=== PATIENT | female | born 1975 | race Hispanic/Latino ===

== ENCOUNTER 2020-07-24 05:05 | Emergency (ER) | payer SELFPAY ==
--- NOTE | 2020-07-24 05:33 | Event Note ---
ED Screening Note ED Screening Note: I briefly spoke with patient and obtain history from EMS. Patient took too many anxiety pills and other type of medication. She told charge nurse that she "I overdosed. I am dying." When I asked if she attempted to harm herself, she stated that "I do not want to go back to [place]. I already went through that." I was concerned that patient did indeed attempt to take her life with intentional overdose. In addition she was evasive and not forthright regarding the preceding events prior to her arrival via EMS. Consequently involuntary hold indicated using 1013 protocol. This initial assessment/diagnostic orders/clinical plan/treatment(s) is/are subject to change based on patients health status, clinical progression and re- assessment by fellow clinical providers in the ED. Further treatment and workup at subsequent clinical providers discretion. Patient/guardian urged not to elope from the ED as their condition may be serious if not clinically assessed and managed. Initial orders include: 1013 form completed, labs, mental health consult order
[2020-07-24] MEDS ORDERED: SODIUM CHLORIDE 0.9% 1000 ML 1,000 ML ONE (06:18)
[2020-07-24 06:20] LABS: Hematocrit 32.9 % (30.3-42.9); Hemoglobin 10.8 gm/dl (10.1-14.3); Mean Corpuscular HGB Conc 33 % (30-34); Mean Corpuscular Volume 76 fl (79-97); Platelet Count 266 K/mm3 (140-440); Red Blood Count 4.35 M/mm3 (3.65-5.03)
[2020-07-24] MEDS ORDERED: SODIUM CHLORIDE 0.9% 1000 ML 1,000 ML IV ONE (06:20)
[2020-07-24] MEDS ORDERED: NALOXONE 2 MG/2 ML INJ IV ONE (06:28)
[2020-07-24] MEDS ORDERED: NALOXONE 2 MG/2 ML INJ ONE (06:29)
[2020-07-24 06:44] LABS: Alanine Aminotransferase 19 units/L (7-56); Albumin 3.8 g/dL (3.9-5); BUN/Creatinine Ratio 11; Blood Urea Nitrogen 11 mg/dL (7-17); Calcium 8.7 mg/dL (8.4-10.2); Hemolysis Index 8
--- NOTE | 2020-07-24 07:01 | Emergency Department Report ---
History of Present Illness - General Chief Complaint: Overdose Stated Complaint: SI ATTEMPT Time Seen by Provider: 07/24/20 06:08 Source: patient, EMS Mode of arrival: Wheelchair Limitations: No Limitations - History of Present Illness Initial Comments: Patient is 44-year-old female with history of schizophrenia and obstructive sleep apnea. Patient brought to the emergency room via EMS from home for evaluation of possible intentional drug overdose. Patient stated that she took too many trazodone and Zofran. Patient informed me that she is hearing voices and they asked her to kill herself. Patient denied any homicidal ideation. No visual hallucination. Upon arrival to the ER patient is obtunded but answering questions. Vital signs stable except for slightly low blood pressure. Patient started on normal saline. Poison control contacted and advised to do EKG and supportive treatment. MD Complaint: intentional overdose -: Sudden, This morning Intent: suicide attempt Context: Intentional Overdose: hearing voices - Related Data Allergies Allergy/AdvReac Type Severity Reaction Status Date / Time No Known Allergies Allergy Verified 07/24/20 05:34 ED Review of Systems ROS: Stated complaint: SI ATTEMPT Other details as noted in HPI Comment: All other systems reviewed and negative Constitutional: denies: chills, fever Respiratory: denies: cough, shortness of breath, SOB with exertion Cardiovascular: denies: chest pain, palpitations Gastrointestinal: denies: abdominal pain, nausea, vomiting Musculoskeletal: denies: back pain Neurological: denies: headache, weakness, numbness, paresthesias, confusion ED Past Medical Hx - Past Medical History Previous Medical History?: Yes Hx Psychiatric Treatment: Yes (anxiety) - Surgical History Past Surgical History?: No - Social History Smoking Status: Never Smoker Substance Use Type: Alcohol ED Physical Exam - General Limitations: No Limitations General appearance: alert, in no apparent distress - Head Head exam: Present: atraumatic, normocephalic, normal inspection - Eye Eye exam: Present: normal appearance - ENT ENT exam: Present: normal exam, normal orophraynx, mucous membranes moist - Neck Neck exam: Present: normal inspection, full ROM. Absent: tenderness, meningismus - Respiratory Respiratory exam: Present: normal lung sounds bilaterally - Cardiovascular Cardiovascular Exam: Present: regular rate, normal rhythm, normal heart sounds - GI/Abdominal GI/Abdominal exam: Present: soft, normal bowel sounds. Absent: distended, tenderness, guarding, rebound, rigid, organomegaly, mass, bruit, pulsatile mass, hernia - Extremities Exam Extremities exam: Present: normal inspection, full ROM, normal capillary refill. Absent: pedal edema, calf tenderness - Back Exam Back exam: Present: normal inspection, full ROM. Absent: CVA tenderness (R), CVA tenderness (L) - Neurological Exam Neurological exam: Present: alert, oriented X3 - Psychiatric Psychiatric exam: Present: depressed - Skin Skin exam: Present: warm, dry, intact, normal color ED Course Vital Signs 07/24/20 07/24/20 07/24/20 05:34 06:05 06:30 Temperature 98.6 F Pulse Rate 106 H 80 78 Respiratory 15 20 18 Rate Blood Pressure 125/78 91/48 90/44 O2 Sat by Pulse 95 90 98 Oximetry 07/24/20 07/24/20 07/24/20 06:45 07:00 08:00 Temperature Pulse Rate 81 82 86 Respiratory 17 17 16 Rate Blood Pressure 100/50 111/59 92/71 O2 Sat by Pulse 98 100 100 Oximetry 07/24/20 07/24/20 07/24/20 09:01 10:00 11:00 Temperature Pulse Rate 87 72 77 Respiratory 17 16 17 Rate Blood Pressure 121/65 114/59 117/70 O2 Sat by Pulse 100 100 100 Oximetry 07/24/20 12:01 Temperature Pulse Rate 84 Respiratory 22 Rate Blood Pressure 114/87 O2 Sat by Pulse 98 Oximetry - Reevaluation(s) Reevaluation #1: 07/24/20 13:14 Patient evaluated by me multiple times. Patient is alert, oriented x3 in no acute distress. Vital signs stable with oxygen saturation of 100% on room air. ED Medical Decision Making - Lab Data Result diagrams: 07/24/20 06:07 07/24/20 06:07 - EKG Data -: EKG Interpreted by Me EKG shows normal: sinus rhythm Rate: normal - EKG Data Interpretation: no acute changes - Medical Decision Making Patient is 44-year-old female with history of schizophrenia and obstructive sleep apnea. Patient brought to the emergency room via EMS from home for evaluation of possible intentional drug overdose. Patient stated that she took too many trazodone and Zofran. Patient informed me that she is hearing voices and they asked her to kill herself. Patient denied any homicidal ideation. No visual hallucination. Upon arrival to the ER patient is obtunded but answering questions. Vital signs stable except for slightly low blood pressure. Patient started on normal saline. Poison control contacted and advised to do EKG and supportive treatment. Labs reviewed and is unremarkable. Poison control contacted and advised to monitor patient to in 6 to 8 hours. Patient is alert, oriented x3 in no acute distress. Family indicated that patient had history of suicidal attempt before. Patient is medically clear to be evaluated by psychiatric team for possible inpatient psychiatric admission. Critical Care Time: Yes Critical care time in (mins) excluding proc time.: 30 Critical care attestation.: If time is entered above; I have spent that time in minutes in the direct care of this critically ill patient, excluding procedure time. ED Disposition Clinical Impression: Intentional overdose of drug in tablet form, Suicide attempt, Cocaine abuse Disposition: DC/TX-65 PSY HOSP/PSY UNIT Is pt being admited?: No Condition: Stable Referrals: FRANSICO SHEARER MD [Primary Care Provider] - 3-5 Days
[2020-07-24 08:11] LABS: Basophils % (Manual) 0 % (0.0-1.8); Total Cells Counted 100
[2020-07-24 08:12] LABS: Anisocytosis 1+; Hypochromasia 2+; Platelet Estimate Consistent w Auto
[2020-07-24 12:01] LABS: Amphetamine Screen,Urine Negative; Benzodiazepines Screen,Urine Negative; Cannabinoid Screen,Urine Negative; Methadone Screen,Urine Negative; Opiate Screen,Urine Negative
[2020-07-24 12:04] LABS: Bacteria,Urine 1+ /HPF (Negative); Bilirubin,Urine NEG (Negative); Blood,Urine SM (Negative); Color,Urine Yellow (Yellow); Mucus,Urine FEW /HPF; Protein,Urine <15 mg/dL mg/dL (Negative); Urobilinogen,Urine < 2.0 mg/dL (<2.0)
[2020-07-24 12:31] LABS: Cocaine Screen,Urine Positive
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
[2020-07-25] MEDS: buPROPion 100 MG TAB PO SCH ×2 (15:00→22:22)
[2020-07-25] MEDS ORDERED: traZODone 50 MG TAB PO SCH (22:00)
[2020-07-25] MEDS: risperiDONE 0.25 MG TAB PO SCH (22:22)
[2020-07-26] MEDS: risperiDONE 0.25 MG TAB PO SCH (11:09)
[2020-07-26] MEDS: buPROPion 100 MG TAB PO SCH (11:09)
[2020-07-26 11:21] VITALS: BP 120/75
== END 2020-07-26 12:51 ==
LOC: ED 05:05 → EEVIPCON 05:05 → ED 07-26 12:51
DX: F20.9 Schizophrenia, unspecified (principal); T43.212A Poisoning by selective serotonin and norepinephrine reuptake inhibitors, intentional self-harm, initial encounter; T45.0X2A Poisoning by antiallergic and antiemetic drugs, intentional self-harm, initial encounter; F43.10 Post-traumatic stress disorder, unspecified; F14.10 Cocaine abuse, uncomplicated; F41.9 Anxiety disorder, unspecified; X58.XXXA Exposure to other specified factors, initial encounter; Y93.89 Activity, other specified; Y92.89 Other specified places as the place of occurrence of the external cause; Y99.8 Other external cause status
CPT/HCPCS: 36415; 80053; 80307; 81001; 83735; 84703; 85007; 85025; 93005; 96361; 96374; 99291; J2310; J7030; 80320; G0480

== ENCOUNTER 2020-08-04 10:54 | Emergency (ER) | payer SELFPAY ==
[2020-08-04 11:37] VITALS: BP 131/82
--- NOTE | 2020-08-04 12:41 | Emergency Department Report ---
Abscess Boil HPI - HPI Chief Complaint: Pain General Stated Complaint: BREAST PAIN Time Seen by Provider: 08/04/20 11:58 Duration: >1 Week Location: Chest (bilateral breast) History: Yes Fever, Yes Pain, No Purulent Drainage, No Numbness, No Foreign Body, No Previous History, No Insect Bite HPI: Chief complaint: Breast pain. HPI: This is a 43-year-old female with obst ructive sleep apnea, schizophrenia and polysubstance abuse who presents with bilateral breast tenderness. Patient has had multiple breast surgeries for previous infections. She feels "fever" in her breasts. Soreness has been present for at least 1 week. Mild pain involving both breasts around the nipple region. Home Medications: Previous Rx's Medication Instructions Recorded Last Taken Type cephALEXin [Keflex] 250 mg PO TID 5 Days #15 capsule 08/04/20 Unknown Rx Allergies/Adverse Reactions: Allergies Allergy/AdvReac Type Severity Reaction Status Date / Time No Known Allergies Allergy Verified 07/24/20 05:34 ED Review of Systems ROS: Stated complaint: BREAST PAIN Other details as noted in HPI Constitutional: fever. denies: chills, malaise Respiratory: denies: cough, shortness of breath Gastrointestinal: denies: abdominal pain, nausea, vomiting Skin: denies: rash, lesions, change in color ED Past Medical Hx - Past Medical History Previous Medical History?: Yes Hx Psychiatric Treatment: Yes (anxiety, SI 07/2020) - Surgical History Additional Surgical History: breast surgery in 2019 - Social History Smoking Status: Current Every Day Smoker Substance Use Type: None - Medications Home Medications: Home Medications Medication Instructions Recorded Confirmed Last Taken Type cephALEXin [Keflex] 250 mg PO TID 5 Days #15 capsule 08/04/20 Unknown Rx ED Abscess Boil Physical Exam - Exam General: Vital signs noted. No distress. Alert and acting appropriately. Exam: Yes Tenderness, Yes Normal Circulation, No Fluctuance, No Surrounding Cellulites/Erythema, No Lymphangitis Exam: Bilateral breast: No erythema no fluctuance, positive tenderness around the area Arabella ED Course Vital Signs 08/04/20 08/04/20 11:19 12:19 Temperature 98.5 F 99 F Pulse Rate 81 76 Respiratory 18 16 Rate Blood Pressure 131/82 Blood Pressure 131/82 [Left] O2 Sat by Pulse 99 100 Oximetry Critical care attestation.: If time is entered above; I have spent that time in minutes in the direct care of this critically ill patient, excluding procedure time. 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 She does have surgical scars on both breasts. At this moment there is no evidence of mastitis or breast abscess, however, I have elected to prescribe prophylactic antibiotic cephalexin considering extensive previous history. I also strongly recommended mammogram. Her last mammogram was over 4 years ago. I have referred her to an outpatient medicine physician. ED Disposition Clinical Impression: Pain of both breasts, History of breast abscess Disposition: TO HOME OR SELFCARE Is pt being admited?: No Does the pt Need Aspirin: No Condition: Stable Additional Instructions: Please see our primary care physician. Please have our primary care physician refer you for a mammogram. Prescriptions: cephALEXin [Keflex] 250 mg PO TID 5 Days #15 capsule Referrals: JAYLEN LAYNE MD [Staff Physician] - 3-5 Days
== END 2020-08-04 12:45 | disposition home or self-care (01) ==
LOC: ED 10:54
DX: N64.4 Mastodynia (principal); F17.200 Nicotine dependence, unspecified, uncomplicated; F41.9 Anxiety disorder, unspecified
CPT/HCPCS: 99282

== ENCOUNTER 2020-08-14 10:07 | Emergency (ER) | payer MEDICAID ==
[2020-08-14 10:35] VITALS: BP 153/79
--- NOTE | 2020-08-14 12:02 | XRay Report ---
LEFT ELBOW 4 VIEW(S) INDICATION / CLINICAL INFORMATION: pain, no injury COMPARISON: None available. FINDINGS: BONES / JOINT(S): No acute fracture or subluxation. Mild degenerative change. SOFT TISSUES: No significant abnormality. ADDITIONAL FINDINGS: None. Signer Name: Barnye Reed MD Signed: 08/14/2020 11:58 AM Workstation Name: [id number]
--- NOTE | 2020-08-14 12:21 | Emergency Department Report ---
ED General Adult HPI - General Chief complaint: Extremity Injury, Upper Stated complaint: ARM PAIN Time Seen by Provider: 08/14/20 11:01 Source: patient Mode of arrival: Ambulatory Limitations: No Limitations - History of Present Illness Initial comments: 43-year-old -[place] female patient presents with complaints of left elbow pain x2 days. She denies any injury or repetitive motions of the left elbow. She rates her current pain as a 8/10 in severity and denies trying any OTC medications. She also denies any history of cancer, numbness/ tingling/weakness in her left arm or hand, or recent heavy lifting. -: Sudden - Related Data Previous Rx's Medication Instructions Recorded Last Taken Type cephALEXin [Keflex] 250 mg PO TID 5 Days #15 capsule 08/04/20 Unknown Rx Ibuprofen [Motrin 800 MG tab] 800 mg PO Q8HR PRN #21 tablet 08/14/20 Unknown Rx Allergies Allergy/AdvReac Type Severity Reaction Status Date / Time No Known Allergies Allergy Verified 07/24/20 05:34 ED Review of Systems ROS: Stated complaint: ARM PAIN Other details as noted in HPI Constitutional: denies: chills, fever, malaise Musculoskeletal: arthralgia. denies: joint swelling Neurological: denies: numbness, paresthesias ED Past Medical Hx - Past Medical History Previous Medical History?: Yes Hx Psychiatric Treatment: Yes (anxiety, SI 07/2020) - Surgical History Past Surgical History?: Yes Additional Surgical History: breast surgery in 2019 - Social History Smoking Status: Current Every Day Smoker Substance Use Type: Prescribed - Medications Home Medications: Home Medications Medication Instructions Recorded Confirmed Last Taken Type cephALEXin [Keflex] 250 mg PO TID 5 Days #15 capsule 08/04/20 Unknown Rx Ibuprofen [Motrin 800 MG tab] 800 mg PO Q8HR PRN #21 tablet 08/14/20 Unknown Rx ED Physical Exam - General Limitations: No Limitations General appearance: alert, in no apparent distress, obese - Head Head exam: Present: atraumatic, normocephalic - Eye Eye exam: Absent: scleral icterus - Respiratory Respiratory exam: Absent: respiratory distress - Cardiovascular Cardiovascular Exam: Present: regular rate - Extremities Exam Extremities exam: Present: full ROM, other (Tenderness to palpation noted at the left medial and lateral portion of the elbow without erythema, deformity, ecchymosis, or warmth or swelling noted. Patient has full range of motion and sensation of the left elbow and hand and fingers. Normal pulses are noted). Absent: joint swelling - Back Exam Back exam: Present: normal inspection - Neurological Exam Neurological exam: Present: alert, oriented X3, normal gait - Psychiatric Psychiatric exam: Present: normal affect, normal mood - Skin Skin exam: Present: warm, dry, intact, normal color. Absent: rash ED Course Vital Signs 08/14/20 10:15 Temperature 98.2 F Pulse Rate 63 Respiratory 18 Rate Blood Pressure 153/79 O2 Sat by Pulse 99 Oximetry ED Medical Decision Making - Radiology Data Radiology results: report reviewed LEFT ELBOW 4 VIEW(S) INDICATION / CLINICAL INFORMATION: pain, no injury COMPARISON: None available. FINDINGS: BONES / JOINT(S): No acute fracture or subluxation. Mild degenerative change. SOFT TISSUES: No significant abnormality. ADDITIONAL FINDINGS: None. - Medical Decision Making Patient here with complaints of left elbow pain without injury for the past 2 days. She denies any red flag symptoms. X-ray is negative for any acute abnormalities. Patient placed in Bill wrap and recommended to use Rice method with NSAIDs. Patient to follow-up with PCP. Strict return precautions were discussed in detail with patient who verbalized understanding. Critical care attestation.: If time is entered above; I have spent that time in minutes in the direct care of this critically ill patient, excluding procedure time. ED Disposition Clinical Impression: Left elbow pain Disposition: DC-01 TO HOME OR SELFCARE Is pt being admited?: No Condition: Stable Instructions: Tennis Elbow (ED) Prescriptions: Ibuprofen [Motrin 800 MG tab] 800 mg PO Q8HR PRN #21 tablet PRN Reason: pain Referrals: PRIMARY CARE,MD [Primary Care Provider] - 3-5 Days
== END 2020-08-14 12:48 | disposition home or self-care (01) ==
LOC: ED 10:07
DX: M25.522 Pain in left elbow (principal); F41.9 Anxiety disorder, unspecified; F17.200 Nicotine dependence, unspecified, uncomplicated; Z98.890 Other specified postprocedural states; Z79.899 Other long term (current) drug therapy

== ENCOUNTER 2020-09-23 13:10 | Emergency (ER) | payer MEDICAID ==
[2020-09-24] MEDS ORDERED: dexAMETHasone 20 MG/5 ML VIAL IM ONE (00:16)
[2020-09-24] MEDS ORDERED: KETOROLAC 30 MG/1 ML INJ IM ONE (00:16)
--- NOTE | 2020-09-24 00:39 | Emergency Department Report ---
Upper Extremity - HPI Chief Complaint: Shoulder Injury Stated Complaint: LEFT SHOULD/ARM PAIN Time Seen by Provider: 09/24/20 00:14 Upper Extremity: Left Shoulder Occurred When: >5 Days Mechanism: Other (Slept left on Shoulder 1 week ago woke up with pain neck and shoulder , 4/10 aching , exacerbated by movement, relieved by nothing, rom intact , no numbness, no deformity. ) Severity: moderate Symptoms: Yes Pain with Movement, Yes Limited Range of Movement, No Deformity, No Numbness, No Weakness, No Swelling, No Bruising/Ecchymosis, No Laceration or Abrasion ED Review of Systems ROS: Stated complaint: LEFT SHOULD/ARM PAIN Other details as noted in HPI Constitutional: no symptoms reported Eyes: denies: eye pain, eye discharge, vision change ENT: denies: ear pain, throat pain Respiratory: denies: cough, shortness of breath, wheezing Cardiovascular: denies: chest pain, palpitations Endocrine: no symptoms reported Gastrointestinal: denies: abdominal pain, nausea, diarrhea Genitourinary: denies: urgency, dysuria, discharge Musculoskeletal: arthralgia, myalgia. denies: back pain, joint swelling Skin: denies: rash, lesions Neurological: denies: headache, weakness, paresthesias Psychiatric: denies: anxiety, depression Hematological/Lymphatic: denies: easy bleeding, easy bruising ED Past Medical Hx - Past Medical History Previous Medical History?: Yes Hx Psychiatric Treatment: Yes (anxiety, SI 07/2020, PTSD,ATTEMPTED SUICIDE) - Surgical History Past Surgical History?: Yes Additional Surgical History: breast surgery in 2019 - Social History Smoking Status: Current Every Day Smoker - Medications Home Medications: Home Medications Medication Instructions Recorded Confirmed Last Taken Type cephALEXin [Keflex] 250 mg PO TID 5 Days #15 capsule 08/04/20 Unknown Rx Ibuprofen [Motrin 800 MG tab] 800 mg PO Q8HR PRN #21 tablet 08/14/20 Unknown Rx Menthol/Camphor [[place] 1 applicatio TP DAILY #1 tube 09/24/20 Unknown Rx Ointment] Naproxen 500 mg PO BID PRN #30 tablet 09/24/20 Unknown Rx Upper Extremity Exam - Exam General: Vital signs noted. No distress. Alert and acting appropriately. Head and Torso: Yes Neck Tenderness (left lateral neck muscle tenderness to deep palpation), No HEENT Abnormality, No Chest/Lungs Abnormality, No Abdominal Tenderness, No Back Tenderness Shoulder Exam: Yes Shoulder Tenderness (left poseriro v), No Clavicle Tenderness, No Normal Range of Motion in Shoulder, No Shoulder Deformity, No AC Joint Tenderness Arm Exam: No Arm/Humerus Tenderness, No Arm Deformity Elbow: Yes Normal Range of Motion in Elbow, No Elbow Tenderness, No Elbow Deformity Forearm: Yes Pain with Pronation, Yes Pain with Supination, No Forearm Tenderness, No Forearm Deformity Wrist: Yes Normal ROM in Wrist, No Wrist Tenderness, No Wrist Deformity, No Snuffbox Tenderness, No Pain with Axial Thumb Compression Hand: No Hand Tenderness, No Hand Deformity, No Digit Tenderness, No Normal ROM in Digit(s), No Digit(s) Deformity, No Tendon Dysfunction CMS Exam: Yes Normal Distal Pulses, Yes Normal Capillary Refill, Yes Normal Distal Sensation, No Broken Skin ED Course Vital Signs 09/23/20 14:59 Temperature 98.5 F Pulse Rate 88 Respiratory 18 Rate Blood Pressure 138/107 O2 Sat by Pulse 100 Oximetry ED Medical Decision Making - Medical Decision Making this is a neck and Shoulder strain, three is no posterior vertebral point tenderness. ROM is restricted by pain, accounting manager controller are equal, distal pulses +2, there is no weakness no numbness no tingling. plan dc to home with RX, moist heat therapy, ROM exercises. pt dc'd to home in stable condition . Critical care attestation.: If time is entered above; I have spent that time in minutes in the direct care of this critically ill patient, excluding procedure time. ED Disposition Clinical Impression: Left shoulder strain Qualifiers: Encounter type: initial encounter Qualified Code(s): S46.912A - Strain of unspecified muscle, fascia and tendon at shoulder and upper arm level, left arm, initial encounter Neck muscle strain Qualifiers: Encounter type: initial encounter Qualified Code(s): S16.1XXA - Strain of muscle, fascia and tendon at neck level, initial encounter Disposition: DC-01 TO HOME OR SELFCARE Is pt being admited?: No Does the pt Need Aspirin: No Condition: Stable Instructions: Naproxen (By mouth), Muscle Strain (ED), Neck Exercises (GEN), Muscle Strain, [id number], Cervical Strain and Sprain Rehab-SportsMed Prescriptions: Naproxen 500 mg PO BID PRN #30 tablet PRN Reason: pain Menthol/Camphor [[place] Ointment] 1 applicatio TP DAILY #1 tube Referrals: PRIMARY CARE, [Primary Care Provider] - 3-5 Days [facility] [Provider Group] - 3-5 Days Forms: Work/School Release Form(ED) Time of Disposition: 00:58
[2020-09-24 01:30] VITALS: BP 130/95
== END 2020-09-24 01:30 | disposition home or self-care (01) ==
LOC: ED 13:10
DX: S46.912A Strain of unspecified muscle, fascia and tendon at shoulder and upper arm level, left arm, initial encounter (principal); S16.1XXA Strain of muscle, fascia and tendon at neck level, initial encounter; F41.9 Anxiety disorder, unspecified; F17.200 Nicotine dependence, unspecified, uncomplicated; Z98.890 Other specified postprocedural states; Z79.1 Long term (current) use of non-steroidal anti-inflammatories (NSAID); Z79.899 Other long term (current) drug therapy; X58.XXXA Exposure to other specified factors, initial encounter; Y93.89 Activity, other specified; Y92.89 Other specified places as the place of occurrence of the external cause; Y99.8 Other external cause status
CPT/HCPCS: 96372; 99282; J1100; J1885

== ENCOUNTER 2020-10-24 10:02 | Emergency (ER) | payer MEDICAID ==
[2020-10-24 10:08] VITALS: BP 161/87
--- NOTE | 2020-10-24 11:20 | Emergency Department Report ---
ED Upper Extremity Inj HPI - General Chief Complaint: Shoulder Injury Stated Complaint: BACK SHOULDER DISCOMFORT Time Seen by Provider: 10/24/20 10:59 Source: patient Mode of arrival: Ambulatory Limitations: No Limitations - History of Present Illness Initial Comments: This is a 44-year-old female presents the emergency department who presents the emergency department chief complaint of left shoulder pain and right breast pain over the past many months. She reports she was seen for her left shoulder pain in the past and given naproxen which is helped. She has never followed up with orthopedics. She denies any injuries. She also reports that she is having pain to the left breast where she feels a painful bump. She has had multiple abscesses in the past and wanted to come here prior to becoming an abscess so she get antibiotics which have helped in the past. She denies any associated fever, chills or night sweats, headache, dizziness, blurry vision, nausea,, diarrhea, chest pain, shortness of breath or any other associated symptoms. - Related Data Previous Rx's Medication Instructions Recorded Last Taken Type cephALEXin [Keflex] 250 mg PO TID 5 Days #15 capsule 08/04/20 Unknown Rx Ibuprofen [Motrin 800 MG tab] 800 mg PO Q8HR PRN #21 tablet 08/14/20 Unknown Rx Menthol/Camphor [[place] 1 applicatio TP DAILY #1 tube 09/24/20 Unknown Rx Ointment] Naproxen 500 mg PO BID PRN #30 tablet 09/24/20 Unknown Rx Clindamycin [Clindamycin CAP] 300 mg PO Q8H #30 cap 10/24/20 Unknown Rx Naproxen [EC-Naprosyn] 500 mg PO BID #20 tablet. 10/24/20 Unknown Rx Allergies Allergy/AdvReac Type Severity Reaction Status Date / Time No Known Allergies Allergy Verified 07/24/20 05:34 ED Review of Systems ROS: Stated complaint: BACK SHOULDER DISCOMFORT Other details as noted in HPI Comment: All other systems reviewed and negative Constitutional: denies: chills, fever Eyes: denies: eye pain, eye discharge, vision change ENT: denies: ear pain, throat pain Respiratory: denies: cough, shortness of breath, wheezing Cardiovascular: denies: chest pain, palpitations Endocrine: no symptoms reported Gastrointestinal: denies: abdominal pain, nausea, diarrhea Genitourinary: denies: urgency, dysuria, discharge Musculoskeletal: as per HPI, arthralgia. denies: back pain, joint swelling Skin: denies: rash, lesions Neurological: denies: headache, weakness, paresthesias Psychiatric: denies: anxiety, depression Hematological/Lymphatic: denies: easy bleeding, easy bruising ED Past Medical Hx - Past Medical History Previous Medical History?: Yes Hx Psychiatric Treatment: Yes (anxiety, SI 07/2020, PTSD,ATTEMPTED SUICIDE) - Surgical History Past Surgical History?: Yes Additional Surgical History: breast surgery in 2019 - Social History Smoking Status: Current Every Day Smoker - Medications Home Medications: Home Medications Medication Instructions Recorded Confirmed Last Taken Type cephALEXin [Keflex] 250 mg PO TID 5 Days #15 capsule 08/04/20 Unknown Rx Ibuprofen [Motrin 800 MG tab] 800 mg PO Q8HR PRN #21 tablet 08/14/20 Unknown Rx Menthol/Camphor [[place] 1 applicatio TP DAILY #1 tube 09/24/20 Unknown Rx Ointment] Naproxen 500 mg PO BID PRN #30 tablet 09/24/20 Unknown Rx Clindamycin [Clindamycin CAP] 300 mg PO Q8H #30 cap 10/24/20 Unknown Rx Naproxen [EC-Naprosyn] 500 mg PO BID #20 tablet. 10/24/20 Unknown Rx ED Physical Exam - General Limitations: No Limitations General appearance: alert, in no apparent distress - Head Head exam: Present: atraumatic, normocephalic - Eye Eye exam: Present: normal appearance, PERRL, EOMI Pupils: Present: normal accommodation - ENT ENT exam: Present: normal exam, normal orophraynx, mucous membranes moist - Neck Neck exam: Present: normal inspection, full ROM. Absent: tenderness, meningismus - Respiratory Respiratory exam: Present: normal lung sounds bilaterally, other (Breast exam chaperoned by MELANIE Huber showing a 1 cm firm area at the 6 o'clock position below the alveolar complex. No fluctuance, erythema or induration. No dimpling. No additional masses.). Absent: respiratory distress, wheezes, rales, rhonchi, stridor - Cardiovascular Cardiovascular Exam: Present: regular rate, normal rhythm, normal heart sounds. Absent: systolic murmur, diastolic murmur, rubs, gallop - GI/Abdominal GI/Abdominal exam: Present: soft, normal bowel sounds - Extremities Exam Extremities exam: Present: normal inspection, full ROM, tenderness (Mild tenderness to the superior and posterior shoulder. Normal passive range of motion without pain. Pain with Liriano sign. Negative drop arm test, negative empty can test. Normal radial pulses that are equal bilaterally), normal capillary refill - Back Exam Back exam: Present: normal inspection, full ROM. Absent: tenderness, CVA tenderness (R), CVA tenderness (L) - Neurological Exam Neurological exam: Present: alert, oriented X3, normal gait. Absent: motor sensory deficit - Psychiatric Psychiatric exam: Present: normal affect, normal mood - Skin Skin exam: Present: warm, dry, intact, normal color. Absent: rash ED Course Vital Signs 10/24/20 10/24/20 10:05 10:07 Temperature 98.1 F Pulse Rate 84 Respiratory 18 Rate Blood Pressure 161/87 [Right] O2 Sat by Pulse 99 Oximetry ED Medical Decision Making - Medical Decision Making Patient's exam is consistent with a early breast abscess. Patient declined I&D and preferred antibiotics. I will also refill the patient's naproxen and recommended orthopedic follow-up. I also recommend the patient follow-up with her primary care doctor for breast imaging as needed such as mammogram to rule out malignancy.. Patient instructed to return the emerge department if develops any change or worsening symptoms patient verbalized understand the diagnosis, treatment and follow-up instructions all of her questions were answered. - Differential Diagnosis Abscess, malignancy, cyst, strain Critical care attestation.: If time is entered above; I have spent that time in minutes in the direct care of this critically ill patient, excluding procedure time. ED Disposition Clinical Impression: Breast abscess Sprain of left shoulder Qualifiers: Encounter type: initial encounter Shoulder sprain type: unspecified sprain Qualified Code(s): S43.402A - Unspecified sprain of left shoulder joint, initial encounter Disposition: TO HOME OR SELFCARE Is pt being admited?: No Condition: Stable Instructions: Skin Abscess Prescriptions: Clindamycin [Clindamycin CAP] 300 mg PO Q8H #30 cap Naproxen [EC-Naprosyn] 500 mg PO BID #20 tablet. Time of Disposition: 11:21
== END 2020-10-24 11:00 | disposition home or self-care (01) ==
LOC: ED 10:02
DX: S43.402A Unspecified sprain of left shoulder joint, initial encounter (principal); N61.1 Abscess of the breast and nipple; F17.200 Nicotine dependence, unspecified, uncomplicated; Z98.890 Other specified postprocedural states; Z79.899 Other long term (current) drug therapy; Z79.1 Long term (current) use of non-steroidal anti-inflammatories (NSAID); Z79.2 Long term (current) use of antibiotics; X58.XXXA Exposure to other specified factors, initial encounter; Y93.89 Activity, other specified; Y92.89 Other specified places as the place of occurrence of the external cause; Y99.8 Other external cause status
CPT/HCPCS: 99282

== ENCOUNTER 2020-12-07 10:18 | Emergency (ER) | payer MEDICAID ==
[2020-12-07 10:25] VITALS: BP 136/68
--- NOTE | 2020-12-07 11:25 | Emergency Department Report ---
ED Upper Extremity Inj HPI - General Chief Complaint: Extremity Injury, Upper Stated Complaint: LFT ARM PAIN Time Seen by Provider: 12/07/20 10:35 Source: patient Mode of arrival: Ambulatory Limitations: No Limitations - History of Present Illness Initial Comments: This is a 44-year-old female presents the emergency department who presents the emergency department chief complaint of left shoulder pain and decreased ROM over hte past many months. She reports she was seen for her left shoulder pain in the past and given naproxen which is helped. She has never followed up with orthopedics. She denies any injuries. She denies any associated fever, chills or night sweats, headache, dizziness, blurry vision, nausea,, diarrhea, chest pain, shortness of breath or any other associated symptoms. - Related Data Previous Rx's Medication Instructions Recorded Last Taken Type cephALEXin [Keflex] 250 mg PO TID 5 Days #15 capsule 08/04/20 Unknown Rx Ibuprofen [Motrin 800 MG tab] 800 mg PO Q8HR PRN #21 tablet 08/14/20 Unknown Rx Menthol/Camphor [[place] 1 applicatio TP DAILY #1 tube 09/24/20 Unknown Rx Ointment] Clindamycin [Clindamycin CAP] 300 mg PO Q8H #30 cap 10/24/20 Unknown Rx Naproxen [EC-Naprosyn] 500 mg PO BID #20 tablet. 10/24/20 Unknown Rx Naproxen 500 mg PO BID PRN #30 tablet 12/07/20 Unknown Rx Allergies Allergy/AdvReac Type Severity Reaction Status Date / Time No Known Allergies Allergy Verified 12/07/20 10:22 ED Review of Systems ROS: Stated complaint: LFT ARM PAIN Other details as noted in HPI Comment: All other systems reviewed and negative Constitutional: denies: chills, fever Eyes: denies: eye pain, eye discharge, vision change ENT: denies: ear pain, throat pain Respiratory: denies: cough, shortness of breath, wheezing Cardiovascular: denies: chest pain, palpitations Endocrine: no symptoms reported Gastrointestinal: denies: abdominal pain, nausea, diarrhea Genitourinary: denies: urgency, dysuria, discharge Musculoskeletal: as per HPI, arthralgia. denies: back pain, joint swelling Skin: denies: rash, lesions Neurological: denies: headache, weakness, paresthesias Psychiatric: denies: anxiety, depression Hematological/Lymphatic: denies: easy bleeding, easy bruising ED Past Medical Hx - Past Medical History Hx Psychiatric Treatment: Yes (anxiety, SI 07/2020, PTSD,ATTEMPTED SUICIDE) - Surgical History Additional Surgical History: breast surgery in 2019 - Social History Smoking Status: Current Some Day Smoker Substance Use Type: None - Medications Home Medications: Home Medications Medication Instructions Recorded Confirmed Last Taken Type cephALEXin [Keflex] 250 mg PO TID 5 Days #15 capsule 08/04/20 Unknown Rx Ibuprofen [Motrin 800 MG tab] 800 mg PO Q8HR PRN #21 tablet 08/14/20 Unknown Rx Menthol/Camphor [[place] 1 applicatio TP DAILY #1 tube 09/24/20 Unknown Rx Ointment] Clindamycin [Clindamycin CAP] 300 mg PO Q8H #30 cap 10/24/20 Unknown Rx Naproxen [EC-Naprosyn] 500 mg PO BID #20 tablet.dr 10/24/20 Unknown Rx Naproxen 500 mg PO BID PRN #30 tablet 12/07/20 Unknown Rx ED Physical Exam - General Limitations: No Limitations General appearance: alert, in no apparent distress - Head Head exam: Present: atraumatic, normocephalic - Eye Eye exam: Present: normal appearance, PERRL, EOMI Pupils: Present: normal accommodation - ENT ENT exam: Present: normal exam, normal orophraynx, mucous membranes moist - Neck Neck exam: Present: normal inspection, full ROM. Absent: tenderness, meningismus - Respiratory Respiratory exam: Present: normal lung sounds bilaterally. Absent: respiratory distress, wheezes, rales, rhonchi, stridor - Cardiovascular Cardiovascular Exam: Present: regular rate, normal rhythm, normal heart sounds. Absent: systolic murmur, diastolic murmur, rubs, gallop - GI/Abdominal GI/Abdominal exam: Present: soft, normal bowel sounds. Absent: distended, tenderness, guarding, rebound, rigid - Extremities Exam Extremities exam: Present: normal inspection, tenderness (Tenderness to the anterior and lateral left shoulder with decreased range of motion. Normal radial pulses. Normal distal sensation capillary refill. Axillary nerve function is normal). Absent: full ROM - Back Exam Back exam: Present: normal inspection, full ROM. Absent: tenderness, CVA tenderness (R), CVA tenderness (L) - Neurological Exam Neurological exam: Present: alert, oriented X3, normal gait - Psychiatric Psychiatric exam: Present: normal affect, normal mood - Skin Skin exam: Present: warm, dry, intact, normal color. Absent: rash ED Course Vital Signs 12/07/20 10:24 Temperature 98.2 F Pulse Rate 74 Respiratory 18 Rate Blood Pressure 136/68 O2 Sat by Pulse 98 Oximetry ED Medical Decision Making - Medical Decision Making Patient's exam is consistent with adhesive capsulitis likely secondary to a sprain of the left shoulder probably of the rotator cuff. Recommended anti- inflammatories and orthopedic follow-up. Educated her that until she sees the orthopedist this is not can get any better. She understood and will follow up. She denies any changing symptoms from the other 2 visits to the ER for the same complaint. - Differential Diagnosis Strain, sprain, he is a capsulitis Critical care attestation.: If time is entered above; I have spent that time in minutes in the direct care of this critically ill patient, excluding procedure time. ED Disposition Clinical Impression: Adhesive capsulitis of left shoulder Disposition: DC-01 TO HOME OR SELFCARE Is pt being admited?: No Condition: Stable Instructions: Adhesive Capsulitis Prescriptions: Naproxen 500 mg PO BID PRN #30 tablet PRN Reason: pain Referrals: PIERCE OTERO MD [Staff Physician] - 3-5 Days Time of Disposition: 11:25
== END 2020-12-07 12:24 | disposition home or self-care (01) ==
LOC: ED 10:18
DX: M75.02 Adhesive capsulitis of left shoulder (principal); F41.9 Anxiety disorder, unspecified; F17.200 Nicotine dependence, unspecified, uncomplicated; Z79.899 Other long term (current) drug therapy
CPT/HCPCS: 99282

== ENCOUNTER 2021-01-10 15:15 | Emergency (ER) | payer MEDICAID ==
--- NOTE | 2021-01-10 15:39 | Emergency Department Report ---
ED General Adult HPI - General Chief complaint: Pain General Stated complaint: SHOULDER/KNEE PAIN SWOLLEN Time Seen by Provider: 01/10/21 15:37 Source: patient Mode of arrival: Ambulatory Limitations: No Limitations - History of Present Illness Initial comments: 44-year-old female past medical history of psych illness presents to the ER today complaining of left shoulder pain, and right knee pain. Patient states that she has had this left shoulder pain chronically for several months. She states that she was told when she came during the ER visit that her pain is likely related to her rotator cuff. She has not follow-up with tuberculosis specialist. She states that the pain she is having today is no different from the pain that she has had in the past with her left shoulder. Reports reduced range of motion of the left shoulder which is chronic. She denies any associated chest pain, shortness of breath, neck pain, focal weakness or numbness or tingling. She also complains of pain to her right knee, mainly anterior and posterior right knee. She states that she has had pain in her knee off and on for the past 6 months and she has gained weight, but it was mild in nature but in the past 2 days has been worse than normal. She reports swelling in the knee over the past 2 days. She states pain is worse with ambulation and with flexion of the knee. She denies any erythema, ecchymosis, calf pain, numbness, tingling or weakness in the legs. She states that she has been taking Tylenol 650 is [id number] for pain without much relief. MD Complaint: Left shoulder pain;Left knee pain -: days(s), month(s) - Related Data Previous Rx's Medication Instructions Recorded Last Taken Type cephALEXin [Keflex] 250 mg PO TID 5 Days #15 capsule 08/04/20 Unknown Rx Ibuprofen [Motrin 800 MG tab] 800 mg PO Q8HR PRN #21 tablet 08/14/20 Unknown Rx Menthol/Camphor [[place] 1 applicatio TP DAILY #1 tube 09/24/20 Unknown Rx Ointment] Clindamycin [Clindamycin CAP] 300 mg PO Q8H #30 cap 10/24/20 Unknown Rx Naproxen [EC-Naprosyn] 500 mg PO BID #20 tablet. 10/24/20 Unknown Rx Acetaminophen/Codeine [Tylenol 1 tab PO Q4HR PRN #10 tablet 01/10/21 Unknown Rx /Codeine # 3 tab] Naproxen 500 mg PO BID PRN #30 tablet 01/10/21 Unknown Rx predniSONE [Deltasone] 40 mg PO QDAY #10 tab 01/10/21 Unknown Rx Allergies Allergy/AdvReac Type Severity Reaction Status Date / Time No Known Allergies Allergy Verified 12/07/20 10:22 ED Review of Systems ROS: Stated complaint: SHOULDER/KNEE PAIN SWOLLEN Other details as noted in HPI Comment: All other systems reviewed and negative Respiratory: denies: cough, shortness of breath, wheezing Cardiovascular: denies: chest pain, palpitations Gastrointestinal: denies: abdominal pain, nausea, diarrhea Musculoskeletal: joint swelling, arthralgia Skin: denies: rash, lesions Neurological: denies: headache, weakness, paresthesias Psychiatric: denies: anxiety, depression Hematological/Lymphatic: denies: easy bleeding, easy bruising ED Past Medical Hx - Past Medical History Previous Medical History?: Yes Hx Psychiatric Treatment: Yes (anxiety, SI 07/2020, PTSD,ATTEMPTED SUICIDE) - Surgical History Past Surgical History?: Yes Additional Surgical History: breast surgery in 2019 - Social History Smoking Status: Never Smoker Substance Use Type: None - Medications Home Medications: Home Medications Medication Instructions Recorded Confirmed Last Taken Type cephALEXin [Keflex] 250 mg PO TID 5 Days #15 capsule 08/04/20 Unknown Rx Ibuprofen [Motrin 800 MG tab] 800 mg PO Q8HR PRN #21 tablet 08/14/20 Unknown Rx Menthol/Camphor [[place] 1 applicatio TP DAILY #1 tube 09/24/20 Unknown Rx Ointment] Clindamycin [Clindamycin CAP] 300 mg PO Q8H #30 cap 10/24/20 Unknown Rx Naproxen [EC-Naprosyn] 500 mg PO BID #20 tablet.dr 10/24/20 Unknown Rx Acetaminophen/Codeine [Tylenol 1 tab PO Q4HR PRN #10 tablet 01/10/21 Unknown Rx /Codeine # 3 tab] Naproxen 500 mg PO BID PRN #30 tablet 01/10/21 Unknown Rx predniSONE [Deltasone] 40 mg PO QDAY #10 tab 01/10/21 Unknown Rx ED Physical Exam - General Limitations: No Limitations General appearance: alert, in no apparent distress - Head Head exam: Present: atraumatic, normocephalic, normal inspection - Eye 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 ). Absent: swelling, abrasion, laceration, ecchymosis, deformity, crepidus, dislocation, erythema Neurosensory exam: Present: radial nerve intact, ulnar nerve intact, median nerve intact Vascular: Present: vascular compromise, normal capillary refill, radial pulse - Expanded Lower Extremity Exam Right Knee exam: Present: normal inspection, tenderness (posterior, mild ), full knee extension. Absent: full ROM (flexion limited to about 90 degrees), swelling, abrasion, laceration, ecchymosis, deformity, crepidus, dislocation, erythema, effusion Lower Leg exam: Present: normal inspection. Absent: tenderness (No calf ttp), swelling, erythema, palpable cord - Back Exam Back exam: Present: normal inspection - Neurological Exam Neurological exam: Present: alert, oriented X3, CN II-XII intact, normal gait - Psychiatric Psychiatric exam: Present: normal affect, normal mood - Skin Skin exam: Present: intact ED Course Vital Signs 01/10/21 01/10/21 15:37 16:54 Temperature 98.9 F 98.4 F Pulse Rate 82 77 Respiratory 20 18 Rate Blood Pressure 166/85 Blood Pressure 165/87 [Right] O2 Sat by Pulse 99 100 Oximetry ED Medical Decision Making - Radiology Data Radiology results: report reviewed Critical care attestation.: If time is entered above; I have spent that time in minutes in the direct care of this critically ill patient, excluding procedure time. ED Disposition Clinical Impression: Chronic shoulder pain, Knee effusion, right Disposition: DC-01 TO HOME OR SELFCARE Is pt being admited?: No Does the pt Need Aspirin: No Condition: Stable Instructions: Shoulder Pain, Knee Effusion Additional Instructions: Take the medication as prescribed. Follow up with Associate Professor as discussed. Return to ED if symptoms changes or worsens in any way. Prescriptions: predniSONE [Deltasone] 40 mg PO QDAY #10 tab Naproxen 500 mg PO BID PRN #30 tablet PRN Reason: pain Acetaminophen/Codeine [Tylenol /Codeine # 3 tab] 1 tab PO Q4HR PRN #10 tablet PRN Reason: Pain Referrals: PRIMARY CARE, [Primary Care Provider] - 3-5 Days PIERCE OTERO MD [Staff Physician] - 3-5 Days Time of Disposition: 17:59
[2021-01-10] MEDS ORDERED: KETOROLAC 60 MG/2 ML INJ IM ONE (16:44)
[2021-01-10 16:57] VITALS: BP 165/87
--- NOTE | 2021-01-10 17:55 | Vascular Lab Report ---
DUPLEX DOPPLER LOWER EXTREMITY VEINS, RIGHT INDICATION / CLINICAL INFORMATION: rt.knee pain. TECHNIQUE: Duplex doppler imaging was performed through the veins of the right lower extremity using venous comp ression and other maneuvers. COMPARISON: None available. FINDINGS: RIGHT COMMON FEMORAL VEIN: Negative. RIGHT FEMORAL VEIN: Negative. RIGHT POPLITEAL VEIN: Negative. RIGHT CALF VEINS: Negative. ADDITIONAL FINDINGS: Right knee effusion. IMPRESSION: 1. No sonographic evidence for DVT in the right lower extremity. 2. Right knee effusion. Signer Name: Salvador Zaragoza MD Signed: 01/10/2021 5:50 PM Workstation Name: [id number]
== END 2021-01-10 18:00 | disposition home or self-care (01) ==
LOC: ED 15:15
DX: M25.511 Pain in right shoulder (principal); M25.461 Effusion, right knee; Z79.899 Other long term (current) drug therapy
CPT/HCPCS: 93971; 96372; 99283; J1885

== ENCOUNTER 2021-03-22 08:53 | Outpatient (CLI) | payer MEDICAID ==
--- NOTE | 2021-03-22 14:11 | XRay Report ---
Bilateral knees single view INDICATION: Osteoarthritis FINDINGS: There is joint space narrowing in the medial compartments bilaterally. Some chondrocalcinos is seen on the left. No acute fracture Signer Name: Man Patrick MD Signed: 03/22/2021 9:45 AM Workstation Name: [id number]
== END 2021-03-22 08:54 | disposition home or self-care (01) ==
LOC: XRAY 08:53
PROVIDERS: ATTEND Orthopaedic Surgery
DX: M17.0 Bilateral primary osteoarthritis of knee (principal); M94.262 Chondromalacia, left knee
CPT/HCPCS: 73565

== ENCOUNTER 2022-03-18 23:34 | Emergency (ER) | payer MEDICAID ==
--- NOTE | 2022-03-19 00:23 | XRay Report ---
CHEST 2 VIEWS INDICATION / CLINICAL INFORMATION: CHEST PAIN. COMPARISON: None available. FINDINGS: SUPPORT DEVICES: None. HEART / MEDIASTINUM: No significant abnormality. LUNGS / PLEURA: No significant pulmonary or pleural abnormality. No pneumothorax. BONES: No significant osseous abnormality. ADDITIONAL FINDINGS: No significant additional findings. IMPRESSION: 1. No active cardiopulmonary disease. Signer Name: Ricky Whitlock II, MD Signed: 03/19/2022 12:18 AM Workstation Name: [id number]
[2022-03-19 01:35] LABS: Basophils # (Auto) 0.1 K/mm3 (0.0-0.1); Eosinophils # (Auto) 0.2 K/mm3 (0.0-0.4); Eosinophils % (Auto) 2.4 % (0.0-4.3); Hematocrit 34.2 % (30.3-42.9); Hemoglobin 10.5 gm/dl (10.1-14.3); Lymphocytes # (Auto) 2.7 K/mm3 (1.2-5.4); Lymphocytes % (Auto) 40.9 % (13.4-35.0); Mean Corpuscular HGB Conc 31 % (30-34); Mean Corpuscular Volume 68 fl (79-97); Monocytes # (Auto) 0.7 K/mm3 (0.0-0.8); Monocytes % (Auto) 9.8 % (0.0-7.3); Platelet Count 333 K/mm3 (140-440); Red Blood Count 5.03 M/mm3 (3.65-5.03)
[2022-03-19 01:36] LABS: Red Cell Distribution Width 20.5 % (13.2-15.2)
[2022-03-19 01:43] LABS: Alanine Aminotransferase 36 units/L (7-56); BUN/Creatinine Ratio 12; Blood Urea Nitrogen 12 mg/dL (7-17); Calcium 8.9 mg/dL (8.4-10.2); Hemolysis Index 2
--- NOTE | 2022-03-19 08:48 | Emergency Department Report ---
ED Chest Pain HPI - General Chief Complaint: Chest Pain Stated Complaint: CHEST PAIN PUI?: No Time Seen by Provider: 03/19/22 08:46 Source: patient Mode of arrival: Ambulatory Limitations: No Limitations - History of Present Illness Initial Comments: Patient is a 45-year-old female that comes to the ER overnight complaining of c hest pain. She states that it was acute in onset 30 minutes prior to arrival. She denies any fever or chills. Denies cough. Denies any trauma. In fact by the time I see her she is denying any pain. Patient is ambulatory, nontoxic and [id number] on exam Patient asking for Motrin prescription to go. MD Complaint: chest pain -: Sudden Pain Location: substernal Pain Radiation: none Severity: mild Quality: heaviness Consistency: intermittent Improves With: nothing Worsens With: nothing Treatments Prior to Arrival: none Aspirin use within the Past 7 Days: (0) No - Related Data Previous Rx's Medication Instructions Recorded Last Taken Type cephALEXin [Keflex] 250 mg PO TID 5 Days #15 capsule 08/04/20 Unknown Rx Ibuprofen [Motrin 800 MG tab] 800 mg PO Q8HR PRN #21 tablet 08/14/20 Unknown Rx Menthol/Camphor [[place] 1 applicatio TP DAILY #1 tube 09/24/20 Unknown Rx Ointment] Clindamycin [Clindamycin CAP] 300 mg PO Q8H #30 cap 10/24/20 Unknown Rx Naproxen [EC-Naprosyn] 500 mg PO BID #20 tablet. 10/24/20 Unknown Rx Acetaminophen/Codeine [Tylenol 1 tab PO Q4HR PRN #10 tablet 01/10/21 Unknown Rx /Codeine # 3 tab] Naproxen 500 mg PO BID PRN #30 tablet 01/10/21 Unknown Rx predniSONE [Deltasone] 40 mg PO QDAY #10 tab 01/10/21 Unknown Rx Ibuprofen [Motrin] 800 mg PO Q8HR PRN #30 tablet 03/19/22 Unknown Rx Allergies Allergy/AdvReac Type Severity Reaction Status Date / Time No Known Allergies Allergy Verified 12/07/20 10:22 Heart Score - HEART Score History: Slightly suspicious EKG: Normal Age: < 45 Risk factors: No known risk factors Troponin: < normal limit HEART Score: 0 - EKG Read Time Time EKG Completed: 02:44 EKG Read Time: 02:44 - Critical Actions Critical Actions: >7 pts:50-65% risk of adverse cardiac event. Early invasive measures ED Review of Systems ROS: Stated complaint: CHEST PAIN Other details as noted in HPI Comment: All other systems reviewed and negative ED Past Medical Hx - Past Medical History Previous Medical History?: Yes Hx Psychiatric Treatment: Yes (anxiety, SI 07/2020, PTSD,ATTEMPTED SUICIDE) - Surgical History Past Surgical History?: Yes Additional Surgical History: breast surgery in 2019 - Family History Family history: no significant - Social History Smoking Status: Never Smoker Substance Use Type: None - Medications Home Medications: Home Medications Medication Instructions Recorded Confirmed Last Taken Type cephALEXin [Keflex] 250 mg PO TID 5 Days #15 capsule 08/04/20 Unknown Rx Ibuprofen [Motrin 800 MG tab] 800 mg PO Q8HR PRN #21 tablet 08/14/20 Unknown Rx Menthol/Camphor [[place] 1 applicatio TP DAILY #1 tube 09/24/20 Unknown Rx Ointment] Clindamycin [Clindamycin CAP] 300 mg PO Q8H #30 cap 10/24/20 Unknown Rx Naproxen [EC-Naprosyn] 500 mg PO BID #20 tablet.dr 10/24/20 Unknown Rx Acetaminophen/Codeine [Tylenol 1 tab PO Q4HR PRN #10 tablet 01/10/21 Unknown Rx /Codeine # 3 tab] Naproxen 500 mg PO BID PRN #30 tablet 01/10/21 Unknown Rx predniSONE [Deltasone] 40 mg PO QDAY #10 tab 01/10/21 Unknown Rx Ibuprofen [Motrin] 800 mg PO Q8HR PRN #30 tablet 03/19/22 Unknown Rx ED Physical Exam - General Limitations: No Limitations General appearance: alert, in no apparent distress - Head Head exam: Present: atraumatic, normocephalic - Eye Eye exam: Present: normal appearance - ENT ENT exam: Present: mucous membranes moist - Neck Neck exam: Present: normal inspection - Respiratory Respiratory exam: Present: normal lung sounds bilaterally. Absent: respiratory distress - Cardiovascular Cardiovascular Exam: Present: regular rate, normal rhythm. Absent: systolic murmur, diastolic murmur, rubs, gallop - GI/Abdominal GI/Abdominal exam: Present: soft, normal bowel sounds - Extremities Exam Extremities exam: Present: normal inspection - Back Exam Back exam: Present: normal inspection - Neurological Exam Neurological exam: Present: alert, oriented X3 - Psychiatric Psychiatric exam: Present: normal affect, normal mood - Skin Skin exam: Present: warm, dry, intact, normal color. Absent: rash LETHA score - [place] Score Age > 65: (0) No Aspirin use within the Past 7 Days: (0) No 3 or more CAD Risk Factors: (0) No 2 or more Angina events in past 24 hrs: (0) No Known CAD with more than 50% Stenosis: (0) No Elevated Cardiac Markers: (0) No ST Deviation Greater than 0.5mm: (0) No LETHA Score: 0 ED Medical Decision Making - Lab Data Result diagrams: 03/19/22 00:18 03/19/22 00:18 - EKG Data EKG shows normal: sinus rhythm Rate: normal - EKG Data Interpretation: no acute changes - Radiology Data Radiology results: report reviewed, image reviewed No acute process - Medical Decision Making Labs 03/19/22 03/19/22 03/19/22 00:18 00:18 02:47 WBC 6.7 RBC 5.03 Hgb 10.5 Hct 34.2 MCV 68 L MCH 21 L MCHC 31 RDW 20.5 H Plt Count 333 Lymph % (Auto) 40.9 H [place] % (Auto) 9.8 H Eos % (Auto) 2.4 Baso % (Auto) 1.0 Lymph # (Auto) 2.7 [place] # (Auto) 0.7 Eos # (Auto) 0.2 Baso # (Auto) 0.1 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 # 3.1 Sodium 138 Potassium 3.8 Chloride 99.4 Carbon Dioxide 21 L Anion Gap 21 BUN 12 Creatinine 1.0 Estimated GFR 59 BUN/Creatinine Ratio 12 Glucose 105 H Calcium 8.9 Total Bilirubin < 0.20 AST 43 H ALT 36 Alkaline Phosphatase 76 Troponin T < 0.010 < 0.010 Total Protein 7.8 Albumin 4.0 Albumin/Globulin Ratio 1.1 03/19/22 06:33 WBC RBC Hgb Hct MCV MCH MCHC RDW Plt Count Lymph % (Auto) [place] % (Auto) Eos % (Auto) Baso % (Auto) Lymph # (Auto) [place] # (Auto) Eos # (Auto) Baso # (Auto) Seg Neutrophils % Seg Neutrophils # Sodium Potassium Chloride Carbon Dioxide Anion Gap BUN Creatinine Estimated GFR BUN/Creatinine Ratio Glucose Calcium Total Bilirubin AST ALT Alkaline Phosphatase Troponin T < 0.010 Total Protein Albumin Albumin/Globulin Ratio Labs noted. EKG normal x2 Chest x-ray no acute process Vital signs normal as documented by RN. By the time I saw patient who had waited most of the night to be seen she stated she was having no pain. She told me that the only medical problem she has is mental health disease. I suspect there is a component of malingering in the ER overnight. Patient being discharged home with discharge plan of care including diet, activity, medications and follow-up. She verbalizes understanding of plan of care - Differential Diagnosis Rule out ACS- rule out U RI Critical care attestation.: If time is entered above; I have spent that time in minutes in the direct care of this critically ill patient, excluding procedure time. ED Disposition Clinical Impression: Chest wall pain Disposition: 01 HOME / SELF CARE / HOMELESS Is pt being admited?: No Does the pt Need Aspirin: No Condition: Stable Instructions: Nonspecific Chest Pain, Adult Additional Instructions: Continue your home medications. Follow-up with PCP. Referral below. [id number] Tums may help with your gas feelings. Motrin for pain that is worse with movement. Prescriptions: Ibuprofen [Motrin] 800 mg PO Q8HR PRN #30 tablet PRN Reason: Pain, Moderate (4-6) Referrals: JAYLEN LAYNE MD [Staff Physician] - 3-5 Days Time of Disposition: 08:59
--- NOTE | 2022-03-19 14:22 | Electrocardiograph Report ---
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
== END 2022-03-19 09:13 | disposition home or self-care (01) ==
LOC: ED 23:34
DX: R07.89 Other chest pain (principal)
CPT/HCPCS: 36415; 71046; 80053; 84484; 85025; 93005; 99283